=== PATIENT | female | born 1995 | race Caucasian/White ===

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

== ENCOUNTER 2017-07-07 11:58 | Emergency (ER) | payer OTHER ==
[2017-07-07] MEDS ORDERED: NS 1,000 ML IV ONE ×2 (13:00→14:21)
[2017-07-07] MEDS ORDERED: IBUPROFEN 600 MG TAB PO ONE (13:29)
--- NOTE | 2017-07-07 13:30 | EDPHY ---
H & P Stated Complaint: left flank pain, on cipro x2 dys Time Seen by Provider: 07/07/17 12:52 HPI/ROS: CHIEF COMPLAINT: Left flank pain, fever HISTORY OF PRESENT ILLNESS: 21-year-old female presents with left flank pain and fever. Diagnosed with pyelonephritis 2 days ago at [facility] and placed on Cipro. No urine culture was performed at that time. She continues to have fever to 103 and left flank pain. Associated with nausea. She initially had a sore throat and some nasal congestion as well, but this has resolved. REVIEW OF SYSTEMS: complete 10 point ROS negative except at noted in the HPI - Personal History LMP (Females 10-55): Now Current Tetanus/Diphtheria Vaccine: Yes Current Tetanus Diphtheria and Acellular Pertussis (TDAP): Yes - Medical/Surgical History Hx Asthma: No Hx Chronic Respiratory Disease: No Hx Diabetes: No Hx Cardiac Disease: No Hx Renal Disease: No Hx Cirrhosis: No Hx Alcoholism: No Hx HIV/AIDS: No Hx Splenectomy or Spleen Trauma: No Other PMH: Endometriosis., - Social History Smoking Status: Never smoked - Physical Exam Exam: General Appearance: Alert, pleasant, nontoxic Eyes: Pupils equal and round, no conjunctival pallor ENT, Mouth: Mucous membranes moist Neck: Normal inspection Respiratory: Lungs are clear to auscultation Cardiovascular: Regular rate and rhythm Gastrointestinal: Abdomen is soft, suprapubic tenderness Back: Left CVA tenderness Neurological: A&O, nonfocal, normal gait Skin: Warm and dry, no rash Extremities: Normal inspection Psychiatric: Mood and affect normal Constitutional: Initial Vital Signs Temperature (C) 37.6 C 07/07/17 12:01 Heart Rate 112 H 07/07/17 12:01 Respiratory Rate 18 07/07/17 12:01 Blood Pressure 123/80 H 07/07/17 12:01 O2 Sat (%) 95 07/07/17 12:01 O2 Delivery Mode Room Air Allergies/Adverse Reactions: acetaminophen [From Vicodin] Allergy (Mild, Verified 06/07/09 05:05) hydrocodone bitartrate [From Vicodin] Allergy (Mild, Verified 06/07/09 05:05) amoxicillin Allergy (Verified 07/07/17 12:04) Home Medications: Medication Instructions Recorded Acet/Caffeine/Buta Fioricet 1 tab PO Q6 PRN #15 tab 07/07/17 [Fioricet (*)] Apri 28 Day Tablet 07/07/17 Cefdinir [Omnicef (*)] 300 mg PO BID #20 cap 07/07/17 Cipro 07/07/17 Ondansetron Odt [Zofran Odt 4 mg 4 mg PO Q4 PRN #6 tab 07/07/17 (*)] Medical Decision Making - Diagnostics Imaging Results: Imaging Impressions Abdomen/Pelvis Ultrasound 07/07/17 14:19 Impression: 1. Sonographically unremarkable kidneys. 2. No obstruction or perinephric collection. Chest X-Ray 07/07/17 15:54 Impression: No acute pulmonary disease. ED Course/Re-evaluation: This patient presents with persistent fever and left flank pain after being diagnosed with a UTI. No urine culture was performed on the initial urinalysis. Urinalysis today does not clearly show a urinary tract infection, so she may have a partially treated UTI. However, just to make sure, a renal ultrasound was ordered to evaluate for hydronephrosis. If this test is normal, will obtain a chest x-ray to rule out pneumonia, given that she had URI symptoms last week. IV normal saline 1 L and Zofran 4 mg IV given for symptomatic treatment. Chest x-ray and renal ultrasound normal. Urine culture sent. Will treat her for pyelonephritis. Rocephin 1 g IV given. Prescription for Omnicef given. Warning signs discussed. Will follow up with PCP tomorrow for recheck. Differential Diagnosis: Differential diagnosis includes though it is not limited to appendicitis, cholecystitis, diverticulitis, pyelonephritis, bowel perforation, small bowel obstruction. - Data Points Laboratory Results: Laboratory Results 07/07/17 13:04 07/07/17 13:04 07/07/17 07/07/17 07/07/17 13:50 13:04 13:04 WBC RBC Hgb Hct MCV MCH MCHC RDW Plt Count MPV Neut % (Auto) Lymph % (Auto) [place] % (Auto) Eos % (Auto) Baso % (Auto) Nucleat RBC Rel Count Absolute Neuts (auto) Absolute Lymphs (auto) Absolute Monos (auto) Absolute Eos (auto) Absolute Basos (auto) Absolute Nucleated RBC Immature Gran % Immature Gran # Platelet Estimate Sodium 138 mEq/L mEq/L (135-145) Potassium 4.1 mEq/L mEq/L (3.5-5.2) Chloride 103 mEq/L mEq/L (97-110) Carbon Dioxide 20 mEq/l L mEq/l (22-31) Anion Gap 15 mEq/L mEq/L (8-16) BUN 7 mg/dL mg/dL (7-23) Creatinine 0.8 mg/dL mg/dL (0.6-1.0) Estimated GFR > 60 Glucose 85 mg/dL mg/dL (70-100) Calcium 8.9 mg/dL mg/dL (8.5-10.4) Beta HCG, Qual NEGATIVE Urine Color YELLOW Urine Appearance CLEAR Urine pH 5.5 (5.0-7.5) Ur Specific [place] >= 1.030 (1.002-1.030) Urine Protein 1+ H (NEGATIVE) Urine Ketones 2+ H (NEGATIVE) Urine Blood 3+ H (NEGATIVE) Urine Nitrate NEGATIVE (NEGATIVE) Urine Bilirubin NEGATIVE (NEGATIVE) Urine Urobilinogen 1.0 EU EU (0.2-1.0) Ur Leukocyte Esterase NEGATIVE (NEGATIVE) Urine RBC 3-5 /hpf H /hpf (0-3) Urine WBC OCCASIONAL /hpf /hpf (0-3) Ur Epithelial Cells TRACE /lpf /lpf (NONE-1+) Urine Mucus 3+ /lpf H /lpf (NONE-1+) Urine Glucose NEGATIVE (NEGATIVE) 07/07/17 13:04 WBC 4.74 10^3/uL 10^3/uL (3.80-9.50) RBC 5.14 10^6/uL 10^6/uL (4.18-5.33) Hgb 15.2 g/dL g/dL (12.6-16.3) Hct 43.8 % % (38.0-47.0) MCV 85.2 fL fL (81.5-99.8) MCH 29.6 pg pg (27.9-34.1) MCHC 34.7 g/dL g/dL (32.4-36.7) RDW 12.4 % % (11.5-15.2) Plt Count 136 10^3/uL L 10^3/uL (150-400) MPV 10.7 fL fL (8.7-11.7) Neut % (Auto) 56.1 % % (39.3-74.2) Lymph % (Auto) 38.0 % % (15.0-45.0) [place] % (Auto) 5.1 % % (4.5-13.0) Eos % (Auto) 0.0 % L % (0.6-7.6) Baso % (Auto) 0.6 % % (0.3-1.7) Nucleat RBC Rel Count 0.0 % % (0.0-0.2) Absolute Neuts (auto) 2.66 10^3/uL 10^3/uL (1.70-6.50) Absolute Lymphs (auto) 1.80 10^3/uL 10^3/uL (1.00-3.00) Absolute Monos (auto) 0.24 10^3/uL L 10^3/uL (0.30-0.80) Absolute Eos (auto) 0.00 10^3/uL L 10^3/uL (0.03-0.40) Absolute Basos (auto) 0.03 10^3/uL 10^3/uL (0.02-0.10) Absolute Nucleated RBC 0.00 10^3/uL 10^3/uL (0-0.01) Immature Gran % 0.2 % % (0.0-1.1) Immature Gran # 0.01 10^3/uL 10^3/uL (0.00-0.10) Platelet Estimate TNP Sodium Potassium Chloride Carbon Dioxide Anion Gap BUN Creatinine Estimated GFR Glucose Calcium Beta HCG, Qual Urine Color Urine Appearance Urine pH Ur Specific [place] Urine Protein Urine Ketones Urine Blood Urine Nitrate Urine Bilirubin Urine Urobilinogen Ur Leukocyte Esterase Urine RBC Urine WBC Ur Epithelial Cells Urine Mucus Urine Glucose Medications Given: Discontinued Medications Sodium Chloride (Ns) 1,000 mls @ 0 mls/hr IV EDNOW ONE; Wide Open PRN Reason: Protocol Stop: 07/07/17 13:01 Last Admin: 07/07/17 13:08 Dose: 1,000 mls Ceftriaxone Sodium/Dextrose (Rocephin 1 Gm (Premix)) 50 mls @ 100 mls/hr IV EDNOW ONE PRN Reason: Protocol Stop: 07/07/17 14:48 Last Admin: 07/07/17 14:32 Dose: 50 mls Sodium Chloride (Ns) 1,000 mls @ 0 mls/hr IV ONCE ONE; Wide Open PRN Reason: Protocol Stop: 07/07/17 14:22 Last Admin: 07/07/17 14:31 Dose: 1,000 mls Ibuprofen (Motrin) 600 mg PO EDNOW ONE Stop: 07/07/17 13:30 Last Admin: 07/07/17 13:47 Dose: 600 mg Departure - Departure Disposition: Home, Routine, Self-Care Clinical Impression: Acute pyelonephritis Condition: Good Instructions: Kidney Infection (ED) Additional Instructions: Call for urine culture results in 2 days. Drink plenty of fluids. Alternate Tylenol and ibuprofen every 3 hr for fever and pain control. Return for worsening symptoms or any concerns. Follow-up in 2-3 days for recheck without fail. Referrals: Carson Arechiga DO [Doctor of Osteopathy] - As per Instructions Prescriptions: Acet/Caffeine/Buta Fioricet [Fioricet (*)] 1 tab PO Q6 PRN #15 tab PRN Reason: Headache Cefdinir [Omnicef (*)] 300 mg PO BID #20 cap Ondansetron Odt [Zofran Odt 4 mg (*)] 4 mg PO Q4 PRN #6 tab PRN Reason: Nausea
[2017-07-07 13:42] LABS: PLATELET COUNT 136 10^3/uL (150-400)
[2017-07-07] MEDS ORDERED: ACET/CAFFEINE/BUTA FIORICET 1 EACH TAB PO ONE (16:44)
[2017-07-07 17:03] VITALS: BP 101/68
== END 2017-07-07 17:03 | disposition home or self-care (01) ==
DX: N10 Acute pyelonephritis (principal); E86.9 Volume depletion, unspecified; B96.89 Other specified bacterial agents as the cause of diseases classified elsewhere
CPT/HCPCS: 96365; J0696

== ENCOUNTER 2017-07-09 21:10 | Inpatient (IN) | payer OTHER ==
[2017-07-09] MEDS ORDERED: NS 1,000 ML IV ONE ×2 (21:30→23:33)
--- NOTE | 2017-07-09 21:50 | EDPHY ---
H & P Stated Complaint: kidney infection dx 4 days ago, continued fevers - Personal History LMP (Females 10-55): Now Current Tetanus Diphtheria and Acellular Pertussis (TDAP): Yes - Medical/Surgical History Hx Asthma: No Hx Chronic Respiratory Disease: No Hx Diabetes: No Hx Cardiac Disease: No Hx Renal Disease: No Hx Cirrhosis: No Hx Alcoholism: No Hx HIV/AIDS: No Hx Splenectomy or Spleen Trauma: No Other PMH: Endometriosis. - Social History Smoking Status: Never smoked Time Seen by Provider: 07/09/17 21:20 HPI/ROS: Chief complaint: Persistent fever History of present illness: This is a 21-year-old female who returns to the emergency department for evaluation of a persistent fever. Patient became sick 4-5 days ago. She went to an urgent care, she was diagnosed with a urinary tract infection and placed on Cipro. She continued to have fevers and feeling unwell and presented to this emergency department 2 days ago, there was concern for persistent UTI, patient was given Rocephin and discharged on Omnicef. She returns this evening stating she continues to have a fever getting up into the 102-103F range. She continues to feel unwell. She states she has abdominal pain primarily in the lower abdomen and pelvic region as well as low back pain. In addition she has a headache and neck pain. She does report approximately a week ago she was sick with cold symptoms but those have resolved. She denies other associated signs or symptoms at this time. She has been treating her symptoms with Tylenol, on further discussion however she has been taking 2 tablets of Tylenol every 3 hr for the last few days, she is not sure if these are regular strength or extra-strength, she has missed a few doses, she has not had a dose in 24 hr. Review of systems: A 10 point review of systems was obtained and other than described above was negative (Taj Cornell) - Physical Exam Exam: General Appearance: Alert, nontoxic. Eyes: Pupils equal and round no pallor or injection. ENT, Mouth: Mucous membranes moist. Respiratory: There are no retractions, lungs are clear to auscultation. Cardiovascular: Regular rate and rhythm. Gastrointestinal: Are normal. The abdomen is soft and nondistended. There is mild tenderness in the right upper quadrant, moderate tenderness in the right and left lower quadrant. However there is no guarding or peritoneal signs. Neurological: Alert and oriented x4. Strength and sensation intact and symmetrical. Skin: Warm and dry, no rashes. Musculoskeletal: Neck is supple non tender. Extremities are symmetrical, full range of motion. Psychiatric: Patient is oriented X 3, there is no agitation. (Taj Cornell) Constitutional: Initial Vital Signs Temperature (C) 37.9 C 07/09/17 21:13 Heart Rate 109 H 07/09/17 21:13 Respiratory Rate 20 07/09/17 21:13 Blood Pressure 122/66 H 07/09/17 21:13 O2 Sat (%) 98 07/09/17 21:13 O2 Delivery Mode Room Air Allergies/Adverse Reactions: acetaminophen [From Vicodin] Allergy (Mild, Verified 07/09/17 21:12) hydrocodone bitartrate [From Vicodin] Allergy (Mild, Verified 07/09/17 21:12) amoxicillin Allergy (Verified 07/09/17 21:12) Home Medications: Medication Instructions Recorded Desogestrel-Ethinyl Estradiol 1 tab PO DAILY 07/10/17 [Apri 28 Day Tablet] Medical Decision Making Procedures: Pelvic Exam: The vulva was normal no lesions. The vagina did have blood, patient is on her menstrual cycle, it did not have significant discharge. The cervix was closed no purulent drainage. The uterus was normal size and non tender. The adnexa had no masses and no tenderness. The exam was performed with a loss prevention and safety manager. (Taj Cornell) ED Course/Re-evaluation: I did review her previous ER record. Renal ultrasound unremarkable. Urine culture showed 4+ colony types. I consulted with [facility]. Dr. Navarro Mi, tire wrapper. I discussed with him the patient's presentation, mononucleosis with transaminitis. However, also with heavy Tylenol use over the last few days although negative Tylenol level tonight. It is unclear of how much Tylenol she took. He does recommend patient be started on the NAC protocol. Patient is seen in conjunction with my secondary supervising physician Dr. Des Smith. Patient presents to the emergency department with persistent fever and multiple complaints including headache, neck pain, abdominal pain and low back pain. She has had an extensive workup here, ultimately she appears to have mononucleosis. However, she has a mild transaminitis. Certainly this could be from the mononucleosis. However on discussion with her and her mother she has been taking a rather extensive amount of Tylenol over the last few days. Initially she reported to me 2 tablets every 3 hr. They are not sure if each of these tablets were 325 mg or extra-strength 500 mg. Ultimately she could have been taking 650mg-1 g of Tylenol every 3 hr. She does state she missed a few doses. She has not taken a dose in almost 24 hr. If she had been taking such large amounts of Tylenol certainly her transaminitis could be from this as well. [facility] is recommending NAC protocol. Patient will be admitted to the ICU for the NAC protocol under the care of Dr. Hazel. I have discussed the plan with the patient and her mother who voiced understanding and agreement with it. (Taj Cornell) Differential Diagnosis: Included but not limited to urinary tract infection, pelvic inflammatory disease , tubo-ovarian abscess, viral syndrome, colitis, biliary tract disease, an associated complications, viral syndrome (Taj Cornell) - Data Points Laboratory Results: Laboratory Results 07/09/17 21:40 07/09/17 21:40 Medications Given: Discontinued Medications Diphenhydramine HCl (Benadryl) 25 mg PO Q6HRS PRN PRN Reason: Itching Stop: 01/06/18 02:42 Last Admin: 07/10/17 02:49 Dose: 25 mg Diphenhydramine HCl (Benadryl Injection) 12.5 mg IVP ONCE ONE Stop: 07/10/17 02:59 Last Admin: 07/10/17 03:05 Dose: 12.5 mg Sodium Chloride (Ns) 1,000 mls @ 0 mls/hr IV EDNOW ONE; Wide Open PRN Reason: Protocol Stop: 07/09/17 21:31 Last Admin: 07/09/17 21:39 Dose: 1,000 mls Sodium Chloride (Ns) 1,000 mls @ 0 mls/hr IV ONCE ONE PRN Reason: Wide Open Stop: 07/09/17 23:34 Last Admin: 07/09/17 23:34 Dose: 1,000 mls Acetylcysteine 9,525 mg/ (Dextrose) 247.625 mls @ 247.625 mls/hr IV ONCE ONE Stop: 07/10/17 01:59 Last Admin: 07/10/17 01:20 Dose: 247.625 mls Acetylcysteine 3,175 mg/ (Dextrose) 515.875 mls @ 128.969 mls/hr IV ONCE ONE Stop: 07/10/17 05:59 Last Admin: 07/10/17 02:19 Dose: 515.875 mls Acetylcysteine 6,350 mg/ (Dextrose) 1,031.75 mls @ 64.484 mls/hr IV ONCE ONE Stop: 07/10/17 21:59 Last Admin: 07/10/17 06:32 Dose: 1,031.75 mls Acetylcysteine 6,350 mg/ (Dextrose) 1,031.75 mls @ 64.484 mls/hr IV ONCE ONE Stop: 07/11/17 14:14 Last Admin: 07/10/17 22:59 Dose: 1,031.75 mls Ibuprofen (Motrin) 600 mg PO Q6HRS PRN PRN Reason: Fever, pain Stop: 01/06/18 01:09 Last Admin: 07/10/17 23:58 Dose: 600 mg Miscellaneous Medication (Desogestrel-Ethinyl Estradiol [Apri 28 Day Tablet]) 1 tab PO DAILY MAXWELL Stop: 01/07/18 08:59 Last Admin: 07/11/17 13:21 Dose: Not Given Ondansetron HCl (Zofran Odt) 4 mg PO Q4HRS PRN PRN Reason: Nausea/Vomiting, Use 1st Stop: 01/05/18 23:57 Last Admin: 07/10/17 09:01 Dose: 4 mg Departure - Departure Disposition: [facility] Acute Clinical Impression: Transaminitis, Mononucleosis Fever Qualifiers: Fever type: unspecified Qualified Code(s): R50.9 - Fever, unspecified Condition: Fair
[2017-07-09 21:52] LABS: PLATELET COUNT 143 10^3/uL (150-400)
[2017-07-09] MEDS ORDERED: IOPAMIDOL (ISOVUE-300) 100 ML BTL ONE (23:04)
[2017-07-09] MEDS ORDERED: ACETYLCYSTEINE IV PROTOCOL 1 EACH MISC SCH ×2 (23:45)
[2017-07-09] MEDS ORDERED: ONDANSETRON 4 MG/2 ML VIAL IVP PRN (23:58)
[2017-07-09] MEDS ORDERED: ONDANSETRON DISINTEGRATING 4 MG TAB PO PRN (23:58)
[2017-07-09] MEDS ORDERED: ACETAMINOPHEN 325 MG TAB PO PRN (23:58)
[2017-07-10 00:03] LABS: INR 0.95 (0.83-1.16); PROTIME(PATIENT) 12.9 SEC (12.0-15.0)
[2017-07-10] MEDS ORDERED: D5W IV ONE (01:00)
[2017-07-10] MEDS ORDERED: ACETYLCYSTEINE IV ONE (01:00)
--- NOTE | 2017-07-10 01:04 | PDGENHP ---
History and Physical - Chief Complaint Fever - History of Present Illness 21 yo F presents with 1-2 weeks of fever, fatigue, and intermittent headaches. Patient first noted fever symptoms almost 2 week ago. She felt better after about a week but then became symptomatic again. She presented to urgent care earlier this week and was given abx for a possible UTI. Culture grew multiple colony types. The antibiotics did not help her symptoms. Monoscreen was positive in the ED, which is likely explanatory of her symptoms. She was taking acetaminophen 2 tabs (unclear dose) every 3 hours to control her fever. In the ED LFTs were abnormal and toxicology was called, who recommended NAC protocol. She is being admitted for this. History Information - Allergies/Home Medication List Allergies/Adverse Reactions: acetaminophen [From Vicodin] Allergy (Mild, Verified 07/09/17 21:12) hydrocodone bitartrate [From Vicodin] Allergy (Mild, Verified 07/09/17 21:12) amoxicillin Allergy (Verified 07/09/17 21:12) Home Medications: Apri 28 Day Tablet 07/07/17 [Last Taken Unknown] Cipro 07/07/17 [Last Taken Unknown] I have personally reviewed and updated: family history, medical history - Past Medical History no pertinent PMH - Surgical History Additional surgical history: [place] teeth removed - Family History Additional family history: Thyroid CA in mother - Social History Smoking Status: Never smoked Review of Systems Review of Systems: ROS: 10pt was reviewed & negative except for what was stated in HPI & below Physical Exam Physical Exam: Temp Pulse Resp BP Pulse Ox 38.6 C H 102 H 16 121/87 H 96 07/10/17 00:44 07/10/17 00:44 07/10/17 00:44 07/10/17 00:44 07/10/17 00:44 Constitutional: no apparent distress, not in pain Eyes: PERRL, EOMI Ears, Nose, Mouth, Throat: moist mucous membranes, no oral mucosal ulcers Cardiovascular: regular rate and rhythym, no murmur, rub, or gallop Respiratory: no respiratory distress, no rales or rhonchi Gastrointestinal: normoactive bowel sounds, soft, non-tender abdomen Skin: warm, normal color Musculoskeletal: full muscle strength, no muscle tenderness, other (No nuchal rigidity) Neurologic: AAOx3, CN II-XII Intact Psychiatric: interacting appropriately, not anxious Lab Data & Imaging Review 07/09/17 21:40 07/09/17 21:40 WBC 5.62 10^3/uL (3.80-9.50) 07/09/17 21:40 RBC 5.19 10^6/uL (4.18-5.33) 07/09/17 21:40 Hgb 15.2 g/dL (12.6-16.3) 07/09/17 21:40 Hct 44.3 % (38.0-47.0) 07/09/17 21:40 MCV 85.4 fL (81.5-99.8) 07/09/17 21:40 MCH 29.3 pg (27.9-34.1) 07/09/17 21:40 MCHC 34.3 g/dL (32.4-36.7) 07/09/17 21:40 RDW 12.8 % (11.5-15.2) 07/09/17 21:40 Plt Count 143 10^3/uL (150-400) L 07/09/17 21:40 MPV 10.8 fL (8.7-11.7) 07/09/17 21:40 Neut % (Auto) Not Reported 07/09/17 21:40 Lymph % (Auto) Not Reported 07/09/17 21:40 [place] % (Auto) Not Reported 07/09/17 21:40 Eos % (Auto) Not Reported 07/09/17 21:40 Baso % (Auto) Not Reported 07/09/17 21:40 Nucleat RBC Rel Count Not Reported 07/09/17 21:40 Absolute Neuts (auto) Not Reported 07/09/17 21:40 Absolute Lymphs (auto) Not Reported 07/09/17 21:40 Absolute Monos (auto) Not Reported 07/09/17 21:40 Absolute Eos (auto) Not Reported 07/09/17 21:40 Absolute Basos (auto) Not Reported 07/09/17 21:40 Absolute Nucleated RBC Not Reported 07/09/17 21:40 Immature Gran % Not Reported 07/09/17 21:40 Seg Neutrophils % 44.0 % 07/09/17 21:40 Band Neutrophils % 0 % 07/09/17 21:40 Lymphocytes % 52.0 % 07/09/17 21:40 Monocytes % 4.0 % 07/09/17 21:40 Eosinophils % 0 % 07/09/17 21:40 Basophils % 0 % 07/09/17 21:40 Metamyelocytes % 0 % 07/09/17 21:40 Myelocytes % 0 % 07/09/17 21:40 Promyelocytes % 0 % 07/09/17 21:40 Blast Cells % 0 % 07/09/17 21:40 Immature Gran # Not Reported 07/09/17 21:40 Absolute Seg Neuts 2.47 10^/uL (1.70-6.50) 07/09/17 21:40 Absolute Band Neuts 0.00 10^3/uL (0.00-0.70) 07/09/17 21:40 Absolute Lymphocytes 2.92 10^3/uL (1.00-3.00) 07/09/17 21:40 Absolute Monocytes 0.22 10^3/uL (0.30-0.80) L 07/09/17 21:40 Absolute Eosinophils 0.00 10^3/uL (0.03-0.40) L 07/09/17 21:40 Absolute Basophils 0.00 10^3/uL (0.02-0.10) L 07/09/17 21:40 Absolute Metamyelocyte 0.00 10^3/mL (0.00-0.00) 07/09/17 21:40 Absolute Myelocytes 0.00 10^3/mL (0.00-0.00) 07/09/17 21:40 Absolute Promyelocytes 0.00 10^3/uL (0.00-0.00) 07/09/17 21:40 Absolute Plasma Cells 0.00 10^3/uL (0.00-0.00) 07/09/17 21:40 RBC/WBC/PLT Morphology NORMAL (NORMAL) 07/09/17 21:40 Atypical Lymphocytes 2+ H 07/09/17 21:40 Absolute Blast Cells 0.00 10^3/uL (0.00-0.00) 07/09/17 21:40 Plasma Cells % 0 % 07/09/17 21:40 Platelet Estimate ADEQUATE (ADEQ) 07/09/17 21:40 PT 12.9 SEC (12.0-15.0) 07/09/17 21:40 INR 0.95 (0.83-1.16) 07/09/17 21:40 APTT 28.1 SEC (23.0-38.0) 07/09/17 21:40 Sodium 139 mEq/L (135-145) 07/09/17 21:40 Potassium 4.1 mEq/L (3.5-5.2) 07/09/17 21:40 Chloride 104 mEq/L (97-110) 07/09/17 21:40 Carbon Dioxide 23 mEq/l (22-31) 07/09/17 21:40 Anion Gap 12 mEq/L (8-16) 07/09/17 21:40 BUN 7 mg/dL (7-23) 07/09/17 21:40 Creatinine 0.7 mg/dL (0.6-1.0) 07/09/17 21:40 Estimated GFR > 60 07/09/17 21:40 Glucose 91 mg/dL (70-100) 07/09/17 21:40 Calcium 9.1 mg/dL (8.5-10.4) 07/09/17 21:40 Total Bilirubin 0.9 mg/dL (0.1-1.4) 07/09/17 21:40 Conjugated Bilirubin 0.7 mg/dL (0.0-0.5) H 07/09/17 21:40 Unconjugated Bilirubin 0.2 mg/dL (0.0-1.1) 07/09/17 21:40 AST 652 IU/L (14-46) H 07/09/17 21:40 ALT 554 IU/L (9-52) H 07/09/17 21:40 Alkaline Phosphatase 307 IU/L (38-126) H 07/09/17 21:40 Total Protein 7.6 g/dL (6.3-8.2) 07/09/17 21:40 Albumin 3.8 g/dL (3.5-5.0) 07/09/17 21:40 Lipase 234 IU/L (23-300) 07/09/17 21:40 Beta HCG, Qual NEGATIVE 07/09/17 21:40 Urine Color YELLOW 07/10/17 00:00 Urine Appearance CLEAR 07/10/17 00:00 Urine pH 6.0 (5.0-7.5) 07/10/17 00:00 Ur Specific [place] 1.010 (1.002-1.030) 07/10/17 00:00 Urine Protein NEGATIVE (NEGATIVE) 07/10/17 00:00 Urine Ketones NEGATIVE (NEGATIVE) 07/10/17 00:00 Urine Blood 3+ (NEGATIVE) H 07/10/17 00:00 Urine Nitrate NEGATIVE (NEGATIVE) 07/10/17 00:00 Urine Bilirubin NEGATIVE (NEGATIVE) 07/10/17 00:00 Urine Urobilinogen NEGATIVE EU (0.2-1.0) 07/10/17 00:00 Ur Leukocyte Esterase NEGATIVE (NEGATIVE) 07/10/17 00:00 Urine RBC 25-50 /hpf (0-3) H 07/10/17 00:00 Urine WBC 1-3 /hpf (0-3) 07/10/17 00:00 Ur Epithelial Cells TRACE /lpf (NONE-1+) 07/10/17 00:00 Urine Mucus TRACE /lpf (NONE-1+) 07/10/17 00:00 Urine Glucose NEGATIVE (NEGATIVE) 07/10/17 00:00 Trichomonas (Wet Prep) NO BACTERIA 3+ EPITHELIAL CELLS NO TRICHOMONAS RARE WBC HNO YEAST NO CLUE CELLS SEEN 07/09/17 21:45 Trichomonas (Wet Prep) NO BACTERIA 3+ EPITHELIAL CELLS NO TRICHOMONAS RARE WBC HNO YEAST NO CLUE CELLS SEEN 07/09/17 21:45 Trichomonas (Wet Prep) NO BACTERIA 3+ EPITHELIAL CELLS NO TRICHOMONAS RARE WBC HNO YEAST NO CLUE CELLS SEEN 07/09/17 21:45 Trichomonas (Wet Prep) NO BACTERIA 3+ EPITHELIAL CELLS NO TRICHOMONAS RARE WBC HNO YEAST NO CLUE CELLS SEEN 07/09/17 21:45 Trichomonas (Wet Prep) NO BACTERIA 3+ EPITHELIAL CELLS NO TRICHOMONAS RARE WBC HNO YEAST NO CLUE CELLS SEEN 07/09/17 21:45 Trichomonas (Wet Prep) NO BACTERIA 3+ EPITHELIAL CELLS NO TRICHOMONAS RARE WBC HNO YEAST NO CLUE CELLS SEEN 07/09/17 21:45 Acetaminophen < 10 mcg/mL (10-30) L 07/09/17 21:38 Monoscreen POSITIVE (NEGATIVE) H 07/09/17 21:40 Imaging Review: Imaging Impressions Pelvic/Renal Ultrasound 07/09/17 21:31 Impression: 1. Normal pelvic ultrasound for age. 2. Involuted follicular cyst suspected left adnexa with free fluid in the cul-de -sac and around the left ovary. Findings discussed with TYRONE Tobias at 22:40 hour, 07/09/2017. Abdomen Ultrasound 07/09/17 22:13 Impression: 1. Normal right upper quadrant ultrasound. Findings discussed with TYRONE Tobias at 22:40 hour, 07/09/2017. Assessment & Plan Assessment: 21 yo F with prolonged febrile illness, likely mononucleosis, found to have elevated LFTs in the setting of possible supratherapeutic Tylenol ingestion. Plan: 1. Mononucleosis - Patient has been febrile for nearly 2 weeks, additionally with fatigue and intermittent headaches. She denies nuchal rigidity or other neurologic symptoms. - Admit for observation - Supportive care w/ NSAIDs PRN 2. Abnormal LFTs - I suspect this is due to above infection. However, patient was possibly taking supratherapeutic Tylenol doses, so it is difficult to rule out this as a contributing factor. Toxicology was contacted int the ED and recommended admission for NAC protocol. RUQ U/S unremarkable. - Hepatitis serologies pending - NAC protocol ordered - Monitor CMP Diet - Regular Code - Full Ppx - Low risk Dispo - Admit under observation status
[2017-07-10] MEDS: IBUPROFEN 600 MG TAB PO PRN ×4 (01:38→23:58)
[2017-07-10] MEDS ORDERED: ACETYLCYSTEINE INJ 3,175 MG in D5W 500 ML IV ONE (02:00)
[2017-07-10] MEDS ORDERED: diphenhydrAMINE 25 MG CAP PO PRN (02:43)
[2017-07-10 05:54] LABS: PLATELET COUNT 134 10^3/uL (150-400)
[2017-07-10] MEDS ORDERED: ACETYLCYSTEINE INJ 6,350 MG in D5W 1,000 ML IV ONE ×2 (06:00→22:15)
[2017-07-10] MEDS ORDERED: SODIUM CL NASAL 45 ML BTL EACHNARE PRN (09:49)
--- NOTE | 2017-07-10 09:58 | HOSPPROG ---
Hospitalist Progress Note Assessment/Plan: Mononucleosis - Fevers x2 weeks, with fatigue and intermittent headaches. [place] spot positive in ED. - Supportive care w/ NSAIDs PRN Elevated LFTs - Suspect 2/2 mono infection. RUQ U/S unremarkable. Hx unclear, but had been taking possibly supra-therapeutic tylenol dosing. Undetectable tylenol level x2. - Hepatitis serologies pending - Will complete NAC protocol since she is already on her last bag - LFT's trending down Diet - Regular Code - Full Ppx - Low risk Dispo - change to inpt to complete NAC protocol, likely home in am. Subjective: Pt febrile overnight. Has headache and feels tired. No CP, SOB. No abdominal pain, N/V. Taking po. Good uop. Objective: Vital Signs Temp Pulse Resp BP Pulse Ox 37.5 C 93 26 H 114/62 97 07/10/17 09:00 07/10/17 09:00 07/10/17 09:00 07/10/17 08:00 07/10/17 09:00 Laboratory Results 07/10/17 04:20 07/10/17 04:20 07/09/17 07/10/17 07/11/17 05:59 05:59 05:59 Intake Total 3497 76 Output Total 400 Balance 3097 76 PT 12.9 SEC (12.0-15.0) 07/09/17 21:40 INR 0.95 (0.83-1.16) 07/09/17 21:40 - Physical Exam Constitutional: no apparent distress Eyes: PERRL Ears, Nose, Mouth, Throat: moist mucous membranes Cardiovascular: regular rate and rhythym Respiratory: no respiratory distress, clear to auscultation Gastrointestinal: normoactive bowel sounds, soft, non-tender abdomen Skin: warm Musculoskeletal: full muscle strength Neurologic: AAOx3 Psychiatric: interacting appropriately ICD10 Worksheet Patient Problems: Problems Problem Status Onset Fever Acute Mononucleosis Acute Transaminitis Acute
--- NOTE | 2017-07-10 10:41 | PDMN ---
Medical Necessity Medical necessity: C/M review: Patient meets INPT criteria under [facility] Systemic or infectious condition GRG (Infectious mononucleosis, unspecified with other complication): Acute and persistent mononucleosis, positive [place] spot in ED, elevated LFTs, - suspect secondary to infection, history unclear, patient possibly supra-theraputic Tylemol dosing, 07/09/2017 AST 652, ALT 554, Alk Phos 307, 07/10/2017 AST 461, ALT 467, Alk Phos 76, Acetaminophen level , 10 x 2, hepatitis seroligies pending, requiring 07/11/2017 complete metabolic panel lab, onging NAC protocol - IV Acetylcysteine, close monitoring in ICU. MD anticipates > 2 MN LOS for ongoing med nec for eval and TX of above.
--- NOTE | 2017-07-10 11:13 | GCON ---
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 REASON FOR ADMISSION: Mononucleosis, Tylenol overdose. HISTORY OF PRESENT ILLNESS: The patient is a very pleasant, 21-year-old, white female without past m edical history. She presented with a 1-2 week history of feeling unwell. This included fatigue, hea daches, fever. Fevers were actually quite high. She was started on antibiotics. A mono screen was positive in the emergency room here. She was taking excessive amounts of Tylenol 1000 mg every 3 cori rs to control her fever. Upon presentation, her liver function tests were elevated. PAST MEDICAL HISTORY: None. PAST SURGICAL HISTORY: None. ALLERGIES: To Vicodin, amoxicillin. FAMILY HISTORY: Noncontributory. MEDICATIONS: At home include ciprofloxacin and control pills. SOCIAL HISTORY: She has never smoked cigarettes. She does drink infrequent alcohol. She is single, without children. She is a college student. She has lived in [place] most of her life. REVIEW OF SYSTEMS: A 10-point review of system was performed, is negative except for what is stated in HPI. PHYSICAL EXAM: VITAL SIGNS: Blood pressure is 114/66, pulse 103, respirations 21, temperature 38.4, oxygen saturation 97% on room air. GENERAL: She is a well-developed, well-nourished, 21-year-old, white female who is resting comfortably in no acute distress. HEENT: Eyes are PERRLA, EOMI. Throat shows no erythema or tonsillar hypertrophy. NECK: Supple. No cervical adenopathy. HEART: Regula r rate and rhythm without murmurs, rubs, or gallops. LUNGS: Diminished breath sounds but no wheeze. ABDOMEN: Soft, nontender. Bowel sounds are present in all 4 quadrants. EXTREMITIES: No clubbing , cyanosis, or edema. LABORATORIES: White count 5.2, hemoglobin 13, hematocrit 38, platelet count is 134, sodium 139, pota ssium 3.8, chloride 106, CO2 is 20, BUN 5, creatinine 0.6, glucose is 141, AST is 461. ALT is 467. These are down from admission. Urinalysis is negative. [place] screen is positive. Hepatitis screens are pending. Tylenol levels less than 10. IMPRESSION: 1. Acute mononucleosis. 2. Elevated liver function tests. 3. Possible Tylenol overdose. RECOMMENDATIONS: 1. Agree with N-acetylcysteine protocol. 2. Deep venous thrombosis and pulmonary embolus prophylaxis. 3. Stress ulcer prophylaxis. 4. Early ambulation. 5. Likely discharge home soon. /[id number]/MODL
--- NOTE | 2017-07-10 12:23 | ASMTCMCOM ---
CM Note CM Note Notes: 21yr old female admitted for fever, [place], fatigue-Mononucleosis. Here visiting her mother. Patient is a student. CM not anticipating any discharge needs. Date Signed: 07/10/2017 12:22 PM Electronically Signed By:Hiwot Esquivel LCSW
[2017-07-11 03:34] LABS: HEPATITIS B SURFACE ANTIGEN NEGATIVE (NEGATIVE)
[2017-07-11 03:39] LABS: HEPATITIS A ANTIBODY IGM (BCH) NEGATIVE (NEGATIVE); HEPATITIS B CORE AB IGM NEGATIVE (NEGATIVE)
[2017-07-11 03:51] LABS: HEPATITIS C ANTIBODY TOTAL NEGATIVE (NEGATIVE)
[2017-07-11] MEDS ORDERED: DESOGESTREL ETHINYL ESTRADIOL PO SCH ×2 (09:00)
[2017-07-11 11:35] LABS: INR 1.06 (0.83-1.16)
[2017-07-11 12:02] VITALS: BP 112/76
--- NOTE | 2017-07-11 14:39 | PDINTPN ---
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 Assessment/Plan: Assessment: Plan: Objective: Vital Signs Temp Pulse Resp BP Pulse Ox 37.6 C 96 16 112/76 98 07/11/17 11:59 07/11/17 11:59 07/11/17 11:59 07/11/17 11:59 07/11/17 11:59 Laboratory Results 07/10/17 04:20 07/11/17 04:35 07/10/17 07/11/17 07/12/17 05:59 05:59 05:59 Intake Total 3497 3365 Output Total 400 Balance 3097 3365 PT 14.0 SEC (12.0-15.0) 07/11/17 11:15 INR 1.06 (0.83-1.16) 07/11/17 11:15 Laboratory Tests 07/11/17 07/11/17 04:35 11:15 INR 1.06 AST 504 H ALT 528 H Alkaline Phosphatase 251 H ICD10 Worksheet Patient Problems: Problems Problem Status Onset Fever Acute Mononucleosis Acute Transaminitis Acute
--- NOTE | 2017-07-11 15:09 | ASMTLACE ---
LACE Length of stay for Answers: 2 days current admission Acuity / Level of Answers: Yes Care: Did the patient have an inpatient admission? Comorbidities - select Answers: Other Notes: Mononucleosis all that apply # of Emergency department Answers: 1-2 visits in the last 6 months Score: 7 Date Signed: 07/10/2017 12:20 PM Electronically Signed By:Hiwot Esquivel LCSW
--- NOTE | 2017-07-11 15:39 | GDS ---
[f rep st] DISCHARGE SUMMARY DISCHARGE DIAGNOSES: Acute mononucleosis, transaminitis, unintentional Tylenol overuse. HISTORY OF PRESENT ILLNESS: A pleasant 21-year-old female with no significant past medical history who presented with 1-2 weeks, fatigue, fever, and intermittent headaches. She presented to urgent care earlier this week, was given antibiotics for possible UTI. She did not have improvement of her symptoms. She had a positive mono screen in the ED. She has been taking up to 5000 g of Tylenol for the last couple days. In the emergency room, her LFTs were abnormal. Toxicology was called and NAC protocol was initiated. HOSPITAL COURSE BY PROBLEM: 1. Acute hepatitis: Multifactorial with mononucleosis and significant Tylenol use. This was unintentional. She was placed on NAC protocol. Her LFTs were not improving thus a 2nd bag was initiated. Coags have remained normal. She did have a bump in her LFTs today. She will have followup with her PCP on Tuesday. Abdominal ultrasound was unremarkable. 2. Acute mononucleosis. Supportive care. She was advised not participate in contact sports or horse jumping, which she does. 3. Fevers. None here. Should use Aleve or naproxen. Avoid Tylenol. PHYSICAL EXAMINATION: VITAL SIGNS: Today, temperature 37.6, blood pressure 112 /76, heart rate in the 70s, respirations 16, 98% on room air. GENERAL: Well- appearing, sitting in bed, smiling, no acute distress. HEENT: PERRLA. EOMI. Oropharynx clear. CV: Regular rate and rhythm. No murmurs, gallops, or rubs. LUNGS: Clear. ABDOMEN: Soft, nontender. No organomegaly. : No Serrato. MUSCULOSKELETAL: 5/5 upper lower extremity strength. NEUROLOGIC: 2 through 12 intact. PSYCH: Alert and oriented x3. DISPOSITION: Patient is stable for discharge home with her mother. FOLLOWUP: Primary care physician for repeat LFTs on 07/13/2017. RETURN PRECAUTIONS: Fevers, chills, inability to tolerate p.o. intake, jaundice. Time spent on DC >35 min coordinating DC, and discussing FU with pt and mother /[id number]/MODL MTDD
--- NOTE | 2017-07-13 13:42 | ASDISCHSUM ---
Discharge Information Plan Status:Home with No Needs Medically Cleared to Leave:07/11/2017 Discharge Date:07/11/2017 01:26 PM CM D/C Disposition:Home, Routine, Self-Care ADT D/C Disposition:Home, Routine, Self-Care Projected Discharge Date:07/11/2017 01:00 PM Transportation at D/C:Family Discharge Delay Reason: Follow-Up Date:07/11/2017 01:00 PM Discharge Slot: Final Diagnosis:Mononucleosis Placement Information Patient Contact Information Contact Name:ELANA Relationship:Mother Address:[address] Work Phone: [facility] Phone: [facility]/Zip Code:[place] [address] Email: Financial Information Financial Class:Freddie [employer] Primary Plan Desc:[facility] Primary Plan Number:[id number] Secondary Plan Desc: Secondary Plan Number: Assessment Information LACE LACE Length of stay for Answers: 2 days current admission Acuity / Level of Answers: Yes Care: Did the patient have an inpatient admission? Comorbidities - select Answers: Other Notes: Mononucleosis all that apply # of Emergency department Answers: 1-2 visits in the last 6 months Score: 7 Date Signed: 07/10/2017 12:20 PM Electronically Signed By:Hiwot Esquivel LCSW [facility] CM Progress Note CM Note CM Note Notes: 21yr old female admitted for fever, [place], fatigue-Mononucleosis. Here visiting her mother. Patient is a student. CM not anticipating any discharge needs. Date Signed: 07/10/2017 12:22 PM Electronically Signed By:Hiwot Esquivel LCSW Case Management Discharge Plan Note Case Management Discharge Discharge Order Complete? Answers: Yes Patient to Obtain Answers: via Family Medications Transportation Arranged Answers: Family/Friends Transport will Pick (Date 07/11/2017 01:00 PM & Time) Family Notified Answers: Yes Notes: Mother to transport Discharge Comments Notes: Patient has been discharged home with mother. Has no discharge needs. Date Signed: 07/11/2017 03:08 PM Electronically Signed By:Hiwot Esquivel LCSW Intervention Information
== END 2017-07-11 13:26 | disposition home or self-care (01) | DRG 866 ==
LOC: OBSVTOIN 23:58 → F2N 07-10 00:51
PROVIDERS: ADMIT Student in an Organized Health Care Education/Training Program; ATTEND Internal Medicine
DX: B27.99 Infectious mononucleosis, unspecified with other complication (principal); R94.5 Abnormal results of liver function studies; T39.1X1A Poisoning by 4-Aminophenol derivatives, accidental (unintentional), initial encounter; R50.9 Fever, unspecified; E86.9 Volume depletion, unspecified; Z88.0 Allergy status to penicillin
CPT/HCPCS: G0472; G0480; J0132; J1200; Q9967